=== PATIENT | male | born 1990 | race Two or more races ===

== ENCOUNTER 2016-10-22 18:35 | Emergency (ER) | payer BC ==
[~2016-10-22] VITALS: Ht 172.7 cm; Wt 105.2 kg
[2016-10-22 18:53] VITALS: BP 161/86
[2016-10-22] MEDS ORDERED: AZIT500T PO (18:58)
[2016-10-22] MEDS ORDERED: METR500T PO (18:58)
[2016-10-22] MEDS ORDERED: CEFI200S PO (18:58)
--- NOTE | 2016-10-22 18:58 | PHYS DOC ---
Past Medical History Past Medical History: Other Additional Past Medical Histor: STREP THROAT Past Surgical History: No Surgical History Alcohol Use: Occasionally Drug Use: None Adult General Chief Complaint Chief Complaint: PAIN ON URINATION [facility] Patient is a 26 year old male presents to the emergency department with complaints of burning with urination and urethral discharge. Patient states that he used a condom that his friend had previously worn and used and 2 days later developed urethral discharge with burning with urination. He has no testicular pain, no abdominal pain. He reports no fever. Review of Systems Review of Systems Constitutional: Denies fever or chills [] Eyes: Denies change in visual acuity, redness, or eye pain [] HENT: Denies nasal congestion or sore throat [] Respiratory: Denies cough or shortness of breath [] Cardiovascular: No additional information not addressed in HPI [] GI: Denies abdominal pain, nausea, vomiting, bloody stools or diarrhea [] : Dysuria without urethral discharge Musculoskeletal: Denies back pain or joint pain [] Integument: Denies rash or skin lesions [] Neurologic: Denies headache, focal weakness or sensory changes [] Endocrine: Denies polyuria or polydipsia [] Allergies Allergies Allergies Coded Allergies Type Severity Reaction Last Updated Verified No Known Drug Allergies 04/04/14 No Physical Exam Physical Exam Constitutional: Well developed, well nourished, no acute distress, non-toxic appearance. [] Abdomen: Bowel sounds normal, soft, no tenderness, no masses, no pulsatile masses. [] Skin: Warm, dry, no erythema, no rash. [] Back: No tenderness, no CVA tenderness. [] : Exam deferred at patient's request EKG EKG [] Radiology/Procedures Radiology/Procedures [] Course & Med Decision Making Course & Med Decision Making Pertinent Labs and Imaging studies reviewed. (See chart for details) [] Dragon Disclaimer Dragon Disclaimer This electronic medical record was generated, in whole or in part, using a voice recognition dictation system. Departure Departure Impression: Primary Impression: Urethritis Disposition: 01 HOME, SELF-CARE Condition: STABLE Referrals: ANAMARIA PEPPER DO (PCP) Patient Instructions: Urethritis, Adult Scripts Metronidazole (FLAGYL) 500 Mg Tablet 2 TAB PO BID, #2 TAB Prov: SHONDA ZHAO NURSE ADVISOR 10/22/16 Azithromycin (ZITHROMAX) 500 Mg Tablet 2 TAB PO ONCE, #2 TAB Prov: SHONDA ZHAO APRN 10/22/16 Cefixime (SUPRAX) 200 Mg/5 Ml Susp.recon 400 MG PO ONCE, #10 ML Prov: SHONDA ZHAO APRN 10/22/16 SHONDA ZHAO NURSE ADVISOR Oct 22, 2016 18:58
[2016-10-22 19:02] LABS: BILIRUBIN,URINE NEGATIVE (NEG); GLUCOSE,URINE NEGATIVE (NEG); NITRITE,URINE NEGATIVE (NEG); PROTEIN,URINE NEGATIVE (NEG-TRACE)
[2016-10-22 19:24] LABS: BACTERIA,URINE 0 /HPF (0-FEW); RBC,URINE 0 /HPF (0-2); WBC,URINE TNTC /HPF (0-4)
== END 2016-10-22 19:26 | disposition home or self-care (01) ==
LOC: ER 18:35
DX: N34.2 Other urethritis (principal)
CPT/HCPCS: 81001; 87086; 87491; 87591; 99284

== ENCOUNTER 2017-10-24 14:50 | Inpatient (IN) | payer BC ==
[2017-10-24 15:17] LABS: BASO % 0 % (0-3); EOS % 0 % (0-3); HEMATOCRIT 44.4 % (39.0-53.0); HEMOGLOBIN 14.7 g/dL (13.0-17.5); LYMPH # 2.6 x10^3/uL (1.0-4.8); LYMPH % 13 % (24-48); MEAN CORPUSCULAR HEMOGLOBIN 29 pg (25-35); MEAN CORPUSCULAR HGB CONC 33 g/dL (31-37); MEAN CORPUSCULAR VOLUME 86 fL (79-100); MONO # 1.7 x10^3/uL (0.0-1.1); MONO % 8 % (0-9); NEUT # 16.2 x10^3uL (1.8-7.7); NEUT % 79 % (31-73); PLATELET COUNT 332 x10^3/uL (140-400); RED BLOOD COUNT 5.13 x10^6/uL (4.30-5.70); RED CELL DISTRIBUTION WIDTH 13.2 % (11.5-14.5); WHITE BLOOD COUNT 20.4 x10^3/uL (4.0-11.0)
[2017-10-24 15:21] LABS: ADD MAN DIFF? YES
[2017-10-24] MEDS: IV NORMAL SALINE 1000ML BAG 1,000 ML IV ×3 (15:25→18:00)
[2017-10-24 15:37] LABS: ANION GAP 24 (6-14); BLOOD UREA NITROGEN 14 mg/dL (8-26); BUN/CREATININE RATIO 9 (6-20); CALCIUM 8.9 mg/dL (8.5-10.1); CARBON DIOXIDE 17 mmol/L (21-32); CHLORIDE 99 mmol/L (98-107); CREATININE 1.6 mg/dL (0.7-1.3); GFR 52.5; GLUCOSE 120 mg/dL (70-99); POTASSIUM 3.1 mmol/L (3.5-5.1); SODIUM 140 mmol/L (136-145)
[2017-10-24 15:41] LABS: ALBUMIN 4.2 g/dL (3.4-5.0); ALBUMIN/GLOBULIN RATIO 0.9 (1.0-1.7); ALK PHOS 75 U/L (46-116); ALT (SGPT) 51 U/L (16-63); AST (SGOT) 29 U/L (15-37); TOTAL BILIRUBIN 0.6 mg/dL (0.2-1.0); TOTAL PROTEIN 9.1 g/dL (6.4-8.2)
[2017-10-24 15:45] LABS: TROPONINI < 0.017 ng/mL (0.000-0.055)
[2017-10-24 15:49] LABS: CKMB INDEX 0.4 % (0-4); CKMB MASS 2.2 ng/mL (0.0-3.6); CREATINE KINASE 546 U/L (39-308)
[2017-10-24 16:10] LABS: LACTIC ACID 11.3 mmol/L (0.4-2.0)
[2017-10-24] MEDS ORDERED: fentaNYL PF VIAL 100 MCG/2 ML VIAL IV (16:30)
[2017-10-24] MEDS ORDERED: ONDANSETRON PF 4 MG/2 ML VIAL. IV (16:30)
[2017-10-24 17:04] LABS: % BANDS 2 % (0-9); % EOS 1 % (0-5); % LYMPHS 19 % (24-48); % MONOS 2 % (0-10); % SEGS 76 % (35-66); PLT ESTIMATE ADEQUATE (ADEQUATE)
[2017-10-24 17:06] LABS: TOXIC GRANULATION SLIGHT
[2017-10-24 18:20] LABS: BILIRUBIN,URINE NEGATIVE (NEG); CLARITY,URINE CLEAR; COLOR,URINE YELLOW; GLUCOSE,URINE NEGATIVE (NEG); NITRITE,URINE NEGATIVE (NEG); PROTEIN,URINE NEGATIVE (NEG-TRACE); UROBILINOGEN,URINE 0.2 mg/dL (0.2 mg/dL)
[2017-10-24 18:33] LABS: BARBITURATES NEG (NEG); BENZODIAZEPINES NEG (NEG); CANNABINOIDS NEG (NEG); COCAINE NEG (NEG); METHADONE NEG (NEG); OPIATES NEG (NEG); PHENCYCLIDINE NEG (NEG)
[2017-10-24 18:34] LABS: AMPHETAMINE/METHAMPHETAMINE POS (NEG); BACTERIA,URINE 0 /HPF (0-FEW); ETHANOL, URINE NEG (NEG); RBC,URINE OCC /HPF (0-2); SQUAMOUS EPITHELIAL CELL,UR OCC /LPF; WBC,URINE 0 /HPF (0-4)
[2017-10-24 19:25] LABS: MAGNESIUM 1.7 mg/dL (1.8-2.4)
[2017-10-24 19:35] LABS: TROPONINI < 0.017 ng/mL (0.000-0.055)
[2017-10-24 19:36] LABS: LACTIC ACID 2.2 mmol/L (0.4-2.0)
[2017-10-25] MEDS: IV NORMAL SALINE 1000ML BAG 1,000 ML IV ×2 (01:01→08:28)
[2017-10-25 04:11] LABS: ADD MAN DIFF? NO
[2017-10-25 04:20] LABS: BASO % 0 % (0-3); EOS % 0 % (0-3); HEMATOCRIT 41.6 % (39.0-53.0); HEMOGLOBIN 14.2 g/dL (13.0-17.5); LYMPH # 1.5 x10^3/uL (1.0-4.8); LYMPH % 11 % (24-48); MEAN CORPUSCULAR HEMOGLOBIN 30 pg (25-35); MEAN CORPUSCULAR HGB CONC 34 g/dL (31-37); MEAN CORPUSCULAR VOLUME 86 fL (79-100); MONO # 1.3 x10^3/uL (0.0-1.1); MONO % 10 % (0-9); NEUT # 10.7 x10^3uL (1.8-7.7); NEUT % 79 % (31-73); PLATELET COUNT 253 x10^3/uL (140-400); RED BLOOD COUNT 4.82 x10^6/uL (4.30-5.70); RED CELL DISTRIBUTION WIDTH 13.5 % (11.5-14.5); WHITE BLOOD COUNT 13.6 x10^3/uL (4.0-11.0)
[2017-10-25 05:53] LABS: ANION GAP 10 (6-14); BLOOD UREA NITROGEN 10 mg/dL (8-26); CALCIUM 7.8 mg/dL (8.5-10.1); CARBON DIOXIDE 25 mmol/L (21-32); CHLORIDE 106 mmol/L (98-107); CREATINE KINASE 755 U/L (39-308); CREATININE 0.9 mg/dL (0.7-1.3); GLUCOSE 104 mg/dL (70-99); POTASSIUM 3.5 mmol/L (3.5-5.1); SODIUM 141 mmol/L (136-145)
[2017-10-25 14:20] LABS: POC GLUCOSE 98 mg/dL (70-99)
[2017-10-25] MEDS: ONDANSETRON ODT 4 MG TAB.RAPDIS. PO (14:49)
[2017-10-25] MEDS: ACETAMINOPHEN 325 MG TABLET. PO (14:51)
[2017-10-25] MEDS ORDERED: LORazepam 0.5 MG TABLET PO (16:15)
== END 2017-10-25 16:46 | disposition home or self-care (01) | DRG 918 ==
LOC: 1 WEST ICU 16:37 → ER 14:50 → 1 WEST ICU 16:13
DX: T43.621A Poisoning by amphetamines, accidental (unintentional), initial encounter (principal); Y92.89 Other specified places as the place of occurrence of the external cause
CPT/HCPCS: 36415; 71045; 80048; 80053; 80307; 81001; 82550; 82553; 82962; 83605; 83735; 84484; 85007; 85025; 93005; 96361; 96374; 99285; 99285-25; J2060; J7030; Q0162

== ENCOUNTER 2018-08-29 23:48 | Emergency (ER) | payer BC ==
[~2018-08-29] VITALS: Ht 172.7 cm; Wt 106.6 kg
[~2018-08-29 23:48] MED LIST: AZIT500T PO; CEFI200S PO; METR500T PO
[2018-08-30] MEDS ORDERED: CYCL5TAB PO (00:10)
[2018-08-30] MEDS ORDERED: TRAM50TA PO (00:10)
--- NOTE | 2018-08-30 00:10 | PHYS DOC ---
Past Medical History Past Medical History: No Pertinent History Additional Past Medical Histor: STREP THROAT Past Surgical History: No Surgical History Alcohol Use: Occasionally Drug Use: Methamphetamine Adult General Chief Complaint Chief Complaint: HEAD INJURY/TRAUMA HPI HPI Patient is a 28 year old male presents with persistent headache, dizziness, posterior neck pain after falling out of a car door that was stopped 2 days ago. Patient states then fell from a standing position striking his right forehead, denies loss of consciousness. Patient acknowledges drinking alcohol at the time. Headache is gradually worsening over the past 2 days. Reports some nausea no vomiting. Pain, no extremity weakness loss of sensation. No other acute symptoms or complaints. [] Review of Systems Review of Systems His symptoms as per history of present illness. All other review symptoms are negative. All other systems were reviewed and found to be within normal limits, except as documented in this note. Allergies Allergies Allergies Coded Allergies Type Severity Reaction Last Updated Verified Penicillins Allergy Intermediate 10/24/17 Yes Physical Exam Physical Exam Constitutional: Well developed, well nourished, no acute distress, non-toxic appearance. [] HENT: Normocephalic, right forehead abrasion, bilateral external ears normal, oropharynx moist, no oral exudates, nose normal. [] Eyes: PERRLA, EOMI, conjunctiva normal, no discharge. [] Neck: Normal range of motion, no midline tenderness. [] Cardiovascular:Heart rate regular rhythm, no murmur .[] Lungs & Thorax: Bilateral breath sounds clear to auscultation. [] Neurologic: Alert and oriented X 3, normal motor function, normal sensory function, no focal deficits noted. [] Psychologic: Affect normal, judgement normal, mood normal. [] Current Patient Data Vital Signs Vital Signs Date Time Temp Pulse Resp B/P (MAP) Pulse Ox O2 Delivery O2 Flow Rate FiO2 08/30/18 00:17 97.9 70 16 133/83 (100) 97 Room Air 97.9 EKG EKG [] Radiology/Procedures Radiology/Procedures [CT head/cervical spine: ] Course & Med Decision Making Course & Med Decision Making Pertinent Labs and Imaging studies reviewed. (See chart for details) [Head injury without of consciousness accompanied with neck pain. GCS 15, no focal extremity weakness loss of sensation. We'll obtain CT to rule out intracranial injury and cervical spine injury. Anticipate discharge home with postconcussion syndrome instructions] Dragon Disclaimer Earnest Disclaimer This electronic medical record was generated, in whole or in part, using a voice recognition dictation system. Departure Departure Impression: Primary Impression: Post concussion syndrome Additional Impression: Acute cervical sprain Disposition: 01 HOME, SELF-CARE Condition: GOOD Referrals: ANAMARIA PEPPER DO (PCP) Patient Instructions: Cervical Sprain, [id number], Concussion and Brain Injury, [id number] Additional Instructions: Avoid strenuous physical activity and bright and loud stimulating environments, take ibuprofen for pain, Flexeril and tramadol as needed for additional relief. Follow-up with your PCP in one week for reevaluation. Return to the ED if new or worsening symptoms. Scripts Cyclobenzaprine Hcl (CYCLOBENZAPRINE HCL) 5 Mg Tablet 1 TAB PO TID, #30 TAB Prov: KEHINDE MORENO DO 08/30/18 Tramadol Hcl (TRAMADOL HCL) 50 Mg Tablet 50 MG PO Q6H PRN for PAIN for 3 Days, #15 TAB 0 Refills Prov: KEHINDE MORENO DO 08/30/18 Problem Qualifiers KEHINDE MORENO DO August 30, 2018 00:10
[2018-08-30 00:17] VITALS: BP 133/83
--- NOTE | 2018-08-30 09:50 | RAD ---
CT brain without contrast, CT cervical spine without contrast. HISTORY: Head injury, neck pain CT brain CT scan of brain was done without contrast. Sinuses are clear. A skull fracture is not identified. There is no intracranial hemorrhage or subdural hematoma. There is no mass or shift of the midline. Ventricles are normal in size. IMPRESSION: 1. No intracranial hemorrhage or acute finding noted. End impression CT cervical spine Axial CT images were obtained to the cervical spine. Sagittal and coronal reconstructed images were reviewed. Thyroid is homogeneous. A soft tissue disc protrusion is not identified. A C-spine fracture is not identified. C-spine is in normal alignment. Disc spaces are normal in height. IMPRESSION: 1. No acute fracture noted in the cervical spine Electronically signed by: Richard Mac MD (08/30/2018 12:29 AM) [facility]
== END 2018-08-30 01:10 | disposition home or self-care (01) ==
LOC: ER 23:48
DX: S13.8XXA Sprain of joints and ligaments of other parts of neck, initial encounter (principal); F07.81 Postconcussional syndrome; R42 Dizziness and giddiness; R51 Headache; Z88.0 Allergy status to penicillin; W18.39XA Other fall on same level, initial encounter; Y93.89 Activity, other specified; Y92.89 Other specified places as the place of occurrence of the external cause; Y99.8 Other external cause status
CPT/HCPCS: 70450; 72125; 99284

== ENCOUNTER 2018-12-24 23:00 | Emergency (ER) | payer BC ==
[~2018-12-24] VITALS: Ht 170.2 cm; Wt 98.9 kg
[~2018-12-24 23:00] MED LIST changes: +CYCL5TAB PO; +TRAM50TA PO
[2018-12-24 23:11] VITALS: BP 146/82
--- NOTE | 2018-12-25 00:08 | PHYS DOC ---
Past Medical History Past Medical History: No Pertinent History Additional Past Medical Histor: STREP THROAT (ROSEMARIE PAIZ APRN) Past Surgical History: No Surgical History (ROSEMARIE PAIZ APRN) Alcohol Use: Occasionally Drug Use: Methamphetamine (ROSEMARIE PAIZ APRN) Attending Signature I have participated in the care of this patient and I have reviewed and agree with all pertinent clinical information above including history, exam, and recommendations. (JUSTICE CAMACHO MD) Adult General Chief Complaint Chief Complaint: COUGH HPI HPI Patient is a 28 year old male with no significant medical history who presents to the ED today to be evaluated for multiple complaints. Patient states 3 weeks ago he received a tetanus shot at the PCPs office. He states since then he has had multiple symptoms including breathing cold air, cough, substernal chest pain, pain to his left arm not radiating from the chest. Patient states all the symptoms are from the tetanus shot. Denies any fever. Denies any exacerbating or relieving factors. (ROSEMARIE PAIZ APRN) Review of Systems Review of Systems Constitutional: Denies fever or chills [] Eyes: Denies change in visual acuity, redness, or eye pain [] HENT: Reports breathing cold air. Denies nasal congestion or sore throat [] Respiratory: Reports cough, denies shortness of breath [] Cardiovascular: Reports chest pain GI: Denies abdominal pain, nausea, vomiting, bloody stools or diarrhea [] : Denies dysuria or hematuria [] Musculoskeletal: Denies back pain or joint pain [] Integument: Denies rash or skin lesions [] Neurologic: Denies headache, focal weakness or sensory changes [] All other systems were reviewed and found to be within normal limits, except as documented in this note. (ROSEMARIE PAIZ APRN) Allergies Allergies Allergies Coded Allergies Type Severity Reaction Last Updated Verified Penicillins Allergy Intermediate 10/24/17 Yes (JUSTICE CAMACHO MD) Physical Exam Physical Exam Constitutional: Well developed, well nourished, no acute distress, non-toxic appearance. [] HENT: Normocephalic, atraumatic, bilateral external ears normal, oropharynx moist, no oral exudates, nose normal. [] Eyes: PERRLA, EOMI, conjunctiva normal, no discharge. [] Neck: Normal range of motion, no tenderness, supple, no stridor. [] Cardiovascular:Heart rate regular rhythm, no murmur [] Lungs & Thorax: Bilateral breath sounds clear to auscultation [] Abdomen: Bowel sounds normal, soft, no tenderness, no masses, no pulsatile masses. [] Skin: Warm, dry, no erythema, no rash. [] Back: No tenderness, no CVA tenderness. [] Extremities: No tenderness, no cyanosis, no clubbing, ROM intact, no edema. [] Neurologic: Alert and oriented X 3, normal motor function, normal sensory function, no focal deficits noted. [] Psychologic: Affect normal, judgement normal, mood normal. [] (ROSEMARIE PAIZ APRN) Current Patient Data Vital Signs Vital Signs Date Time Temp Pulse Resp B/P (MAP) Pulse Ox O2 Delivery O2 Flow Rate FiO2 12/24/18 23:11 98.1 95 20 146/82 (103) 97 Room Air 98.1 (JUSTICE CAMACHO MD) EKG EKG [address] Camacho sinus rhythm HR 64 no STEMI[] (ROSEMARIE PAIZ APRN) Radiology/Procedures Radiology/Procedures []PROCEDURE: CHEST PA & LATERAL Two-view chest dated 12/24/2018. No comparison available. Clinical indication: Cough. FINDINGS: PA and lateral views obtained. Heart and mediastinal contours are stable. Lungs are somewhat hyperinflated but otherwise clear. No consolidation or pleural effusion. No pneumothorax. IMPRESSION: No acute radiographic abnormality. Electronically signed by: Manuel Shaver MD (12/25/2018 12:05 AM) [facility] DICTATED and SIGNED BY: MANUEL SHAVER MD DATE: 12/25/18 0005 (ROSEMARIE PAIZ APRN) Course & Med Decision Making Course & Med Decision Making Pertinent Labs and Imaging studies reviewed. (See chart for details) This is a 28-year-old male patient who presents to the ED today with multiple complaints including chest pain, cough, breathing cold air, left arm pain, all the symptoms began 3 weeks ago after he received a tetanus shot. EKG was negative, chest x-ray is negative. He has no cardiac risk factors. I do not believe tetanus shot has anything to do with his symptoms. I recommended he follows up with his own PCP. (ROSEMARIE PAIZ APRN) Dragon Disclaimer Dragon Disclaimer This electronic medical record was generated, in whole or in part, using a voice recognition dictation system. (ROSEMARIE PAIZ APRN) Departure Departure Impression: Primary Impression: Chest pain Disposition: 01 HOME, SELF-CARE Condition: STABLE Referrals: ANAMARIA PEPPER DO (PCP) follow up next week Patient Instructions: Chest Pain (Nonspecific), [id number] Additional Instructions: You were evaluated in the emergency room for multiple symptoms. We highly recommend you follow-up with your primary care doctor. Your EKG, chest x-ray, were negative for any acute findings. Problem Qualifiers Primary Impression: Chest pain Chest pain type: unspecified Qualified Codes: R07.9 - Chest pain, unspecified ROSEMARIE PAIZ APRN Dec 25, 2018 00:08 JUSTICE CAMACHO MD Dec 25, 2018 00:44
--- NOTE | 2018-12-26 07:36 | EKG ---
[facility] [address] [place] [address] Test Date: 2018-12-24 Test Time: 23:21:25 Pat Name: GUADALUPE RICHARD Department: Room: Gender: M [place] Kitter: : 1990 Requested By: ROSEMARIE PAIZ Order Number: [id number] Reading MD: Measurements Intervals Mckenna Rate: 64 P: 36 MN: 168 QRS: 17 QRSD: 100 T: 10 QT: 392 QTc: 408 Interpretive Statements SINUS RHYTHM INCOMPLETE RIGHT BUNDLE BRANCH BLOCK OTHERWISE NORMAL ECG No previous ECG available for comparison
== END 2018-12-25 00:20 | disposition home or self-care (01) ==
LOC: ER 23:00
DX: R07.89 Other chest pain (principal); R05 Cough; M79.602 Pain in left arm; Z88.0 Allergy status to penicillin
CPT/HCPCS: 71046; 93005; 99284